=== PATIENT | female | born 1975 | race Native Hawaiian/Other Pacific Islander ===

== ENCOUNTER 2017-06-11 16:47 | Emergency (ER) | payer MEDICAID ==
[2017-06-11 16:57] VITALS: PULSE 96; RESP 16; TEMP 99; O2SAT 100
[2017-06-11 16:58] VITALS: BP 95/56
--- NOTE | 2017-06-11 17:29 | ED PDOC ---
HPI: Fever Fever Onset Was: 06/10/17 Symptoms Associated With Fever: denies: Vomiting, Diarrhea Additional Comments: Vivian Tatum, a 42 year old female presents to the Emergency [facility] complaining of a fever of 101 degrees of Fahrenheit onset yesterday 06/10/17. Reports she took Advil and Tylenol and felt better. Patient states her blood pressure was in the 80s so she drank two bottles of Gatorade and felt better. Reports her normal systolic pressure is around 100. She is able to tolerate by mouth and has no nausea, vomiting, or diarrhea. Denies cough , shortness of breath, and chest pain. PMD: Roosevelt Cabral Past Medical History Reviewed: Historical Data, Nursing Documentation, Vital Signs Vital Signs: Last Vital Signs Temp 99.0 F 06/11/17 16:53 Pulse 96 H 06/11/17 16:53 Resp 16 06/11/17 16:53 BP 95/56 L 06/11/17 16:53 Pulse Ox 100 06/11/17 18:49 - Medical History Other PMH: Polycystic ovaries - Surgical History Other surgeries: tummy tuck - Family History Family History: States: Unknown Family Hx - Social History Current smoker - smoking cessation education provided: No Alcohol: None Drugs: Denies - Home Medications Home Medications: Ambulatory Orders Medication Instructions Recorded Meclizine [Meclizine*] 25 mg PO Q6 #30 tab 07/30/14 Azithromycin [Zithromax] 250 mg PO DAILY #4 tab 06/11/17 - Allergies Allergies/Adverse Reactions: Allergies Allergy/AdvReac Type Severity Reaction Status Date / Time No Known Allergies Allergy Verified 07/30/14 13:49 Review of Systems ROS Statement: Except As Marked, All Systems Reviewed And Found Negative Constitutional: Positive for: Fever Cardiovascular: Negative for: Chest Pain Respiratory: Negative for: Cough Gastrointestinal: Negative for: Nausea, Vomiting, Diarrhea Physical Exam - Reviewed Nursing Documentation Reviewed: Yes Vital Signs Reviewed: Yes - Physical Exam Appears: Positive for: Well, Non-toxic, No Acute Distress (Speaking full sentences) Head Exam: Positive for: ATRAUMATIC, NORMAL INSPECTION, NORMOCEPHALIC Skin: Positive for: Normal Color, Warm, Dry Eye Exam: Positive for: Normal appearance, EOMI, PERRL ENT: Positive for: Normal ENT Inspection, Pharynx Is (Erythematous), Pharyngeal Erythema. Negative for: Tonsillar Exudate, Tonsillar Swelling Neck: Positive for: Normal, Painless ROM Cardiovascular/Chest: Positive for: Regular Rate, Rhythm. Negative for: Murmur Respiratory: Positive for: Normal Breath Sounds. Negative for: Respiratory Distress Gastrointestinal/Abdominal: Positive for: Normal Exam, Soft. Negative for: Tenderness Extremity: Positive for: Normal ROM. Negative for: Deformity Neurologic/Psych: Positive for: Alert, Oriented (x3) - ECG O2 Sat by Pulse Oximetry: 100 (RA) Pulse Ox Interpretation: Normal Medical Decision Making Medical Decision Making: Time: 17:13 Initial Plan: --ED Urine --Influenza A B --Reevaluation Scribe Attestation: Documented by Ashlee Swanson, acting as a scribe for Parul Arellano MD Provider Scribe Attestation: All medical record entries made by the Scribe were at my direction and personally dictated by me. I have reviewed the chart and agree that the record accurately reflects my personal performance of the history, physical exam, medical decision making, and the department course for this patient. I have also personally directed, reviewed, and agree with the discharge instructions and disposition. Disposition - Clinical Impression Clinical Impression: Viral syndrome, Pharyngitis - Disposition Disposition: Routine/Home Disposition Time: 18:47 Condition: STABLE Additional Instructions: FOLLOW-UP WITH PMD WITHIN 2 DAYS FOR REEVALUATION. CONTINUE IBUPROFEN/TYLENOL NEEDED FOR FEVER. Prescriptions: Azithromycin [Zithromax] 250 mg PO DAILY #4 tab Instructions: Pharyngitis (ED), Viral Syndrome (ED) Forms: [employer] ([place])
== END 2017-06-11 19:00 | disposition home or self-care (01) ==
LOC: H.ER 16:47
DX: J02.9 Acute pharyngitis, unspecified (principal); B34.9 Viral infection, unspecified; E28.2 Polycystic ovarian syndrome